=== PATIENT | female | born 1945 | race Hispanic/Latino ===

== ENCOUNTER 2017-04-25 08:52 | Emergency (ER) | payer OTHER ==
[~2017-04-25] VITALS: Ht 160 cm; Wt 90.7 kg
--- NOTE | 2017-04-25 08:58 | ED SKIN/ALLERGY COMPLAINT ---
History of Present Illness General Chief Complaint: Skin Rash/ Abcess Stated Complaint: RASH ALL OVER Source: patient Exam Limitations: no limitations Vital Signs & Intake/Output Vital Signs & Intake/Output Vital Signs Date Time Temp Pulse Resp B/P B/P Pulse O2 O2 Flow FiO2 Mean Ox Delivery Rate 04/25 0905 97 04/25 0904 98.4 76 18 143/76 96 Room Air Allergies Coded Allergies: NO KNOWN ALLERGIES (07/19/12) Reconcile Medications Oxycodone HCl/Acetaminophen (Percocet 5-325 MG Tablet) 5 MG-325 MG TABLET 1 TAB PO TID PRN PAIN Triage Nurses Notes Reviewed? yes Onset: Abrupt Duration: constant Timing: recent history Severity: severe Severity Numbers: 7 HPI: Patient is a 71-year-old female with an unremarkable past medical history presents emergency room for concerns of a left trunk painful red rash 1 week where she was evaluated 3 days ago by urgent care facility and was given medications of Valtrex and gabapentin with minimal relief of pain. Patient hasn 't taken any medications for symptoms of pain. Patient denies any fever chills rash to the ears nose throat or mouth denies any nausea vomiting chest pain shortness of breath. Denies any similar sick contacts tacks or symptoms (Anselmo Alaniz) Past History Travel History Traveled to [place] past 21 day No Medical History Any Pertinent Medical History? none Influenza Vaccine: 03/08/12 Surgical History Surgical History: non-contributory Psychosocial History What is your primary language [place] Family History Hx Contributory? No (Anselmo Alaniz) Review of Systems Review of Systems Constitutional: Reports: no symptoms. EENTM: Reports: no symptoms. Respiratory: Reports: no symptoms. Cardiovascular: Reports: no symptoms. GI: Reports: no symptoms. Genitourinary: Reports: no symptoms. Musculoskeletal: Reports: no symptoms. Skin: Reports: see HPI. Neurological/Psychological: Reports: no symptoms. Hematologic/Endocrine: Reports: no symptoms. Immunologic/Allergic: Reports: no symptoms. All Other Systems: Reviewed and Negative (Anselmo Alaniz) Physical Exam Physical Exam General Appearance: no apparent distress, alert, obese Head: atraumatic Eyes: Bilateral: normal appearance, PERRL. Ears, Nose, Throat: normal pharynx, normal ENT inspection, hearing grossly normal Neck: normal inspection Respiratory: normal breath sounds, chest non-tender Extremities: normal inspection, no edema Diagram Body: 1) Noted dermatome pattern of erythematous crusting vesicular rash that begins to the midline of patient's left anterior torso region and wraps around to the posterior aspect of torso (Anselmo Alaniz) Progress Differential Diagnosis: abscess/cellulitis, allergic reaction, anaphylaxis, angioedema, asthma, contact dermatitis, drug reaction, erythema multiforme, lyme disease, meningitis/sepsis, piyriasis rosea, RMSF, scarlet fever, shingles, syphilis/gonococcemia, urticaria Plan of Care: Current Medications Sig/Redd Start time Last Medication Dose Stop Time Status Admin Oxycodone/ 1 TAB ONCE ONE 04/25 0815 AC 04/25 Acetaminophen 04/25 0916 0909 (Percocet) Due to history of present illness and exam findings patient has concerns of herpes zoster. No concerns of spread to the oropharynx eyes or ears or nose. (Anselmo Alaniz) Departure Departure Disposition: HOME OR SELF CARE Condition: Stable Clinical Impression Primary Impression: Herpes zoster Referrals: Patient Has No Primary Care Dr Additional Instructions: As discussed continue your previously prescribed Valtrex and gabapentin begin the prescription of Percocet for pain, prescriptions waiting at [facility], follow-up with your doctor this week if no better Departure Forms: Customer Survey General Discharge Information Prescriptions: Current Visit Scripts Oxycodone HCl/Acetaminophen (Percocet 5-325 MG Tablet) 1 TAB PO TID PRN PAIN #12 TAB (Anselmo Alaniz) PA/COMMERCIAL ELECTRICIAN Co-Sign Statement Statement: ED Attending supervision documentation- [] I saw and evaluated the patient. I have also reviewed all the pertinent lab results and diagnostic results. I agree with the findings and the plan of care as documented in the PA's/COMMERCIAL ELECTRICIAN's documentation. [X] I have reviewed the ED Record and agree with the PA's/COMMERCIAL ELECTRICIAN's documentation. [] Additions or exceptions (if any) to the PAs/COMMERCIAL ELECTRICIAN's note and plan are summarized below: [] (Steven VALENZUELA,Orlando Warner)
[2017-04-25 09:04] VITALS: BP 143/76
[2017-04-25] MEDS ORDERED: PERCOCET 5-3251 EACH PO (09:08)
== END 2017-04-25 09:14 ==
LOC: ERH 08:52
DX: B02.9 Zoster without complications (principal)